=== PATIENT | male | born 1980 | race Caucasian/White ===

== ENCOUNTER 2023-08-10 12:13 | Outpatient (CLI) | payer OTHER, SELFPAY ==
--- NOTE | ~2023-08-10 | MR_ITS ---
MRI of the left shoulder Technique: Axial proton-density fat-sat images, coronal proton density fat-sat and T2 fat-sat images, and sagittal T1-weighted and T2 fat-sat images were acquired. Clinical History: Pain Findings: There is minimal AC joint degenerative change. Coracoclavicular, coracoacromial, and coraco humeral ligaments are intact. There is a probable focal low-grade 3 mm interstitial tear at the distal supraspinatus tendon inserti on. No high-grade partial full-thickness tear seen. Infraspinatus tendon is intact. Subscapularis ten don is intact, with mild tendinosis. Tendon of long head of the biceps is intact. There is probable anteroinferior labral tear, consistent with soft tissue Bankhart lesion. There is acute Hill-Sachs impaction deformity at the posterior superior aspect of the humeral head wi th impaction deformity and marrow edema. No glenoid fracture evident. Inferior glenohumeral ligament is intact. Minimal glenohumeral joint effusion present. No fluid distention of the subacromial/subdel toid bursa. No muscle atrophy or edema. Impression: Probable anteroinferior labral tear, with associated acute Hill-Sachs impaction deformity, consistent with sequelae of recent anteroinferior dislocation of the humeral head. Probable 3 mm focal low-grade interstitial tear at the distal supraspinatus tendon insertion. Reviewed, dictated and finalized at [facility]. [employer] Impression: Probable anteroinferior labral tear, with associated acute Hill-Sachs impaction deformity, consistent with sequelae of recent anteroinferior dislocation of th e humeral head. Probable 3 mm focal low-grade interstitial tear at the distal supraspinatus ten don insertion.
== END 2023-08-10 12:14 | disposition home or self-care (01) ==
LOC: ANHIMG 12:16
PROVIDERS: PCP Physician Assistant; Visit Provider Physician Assistant
DX: M25.512 Pain in left shoulder (principal); S43.006A Unspecified dislocation of unspecified shoulder joint, initial encounter; X58.XXXA Exposure to other specified factors, initial encounter
CPT/HCPCS: 73221

== ENCOUNTER 2024-06-19 21:24 | Emergency (ER) | payer OTHER, SELFPAY ==
--- NOTE | ~2024-06-19 | XR_ITS ---
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 Comparison: None. FINDINGS: MEDIASTINUM: The cardiac silhouette is not enlarged. LUNGS: No infiltrates, effusions or pneumothorax. Prominent markings in the left lower lobe medially are noted. OTHER: No free air under the diaphragm. IMPRESSION: Slightly prominent markings in the left lower lobe. Otherwise, no acute cardiopulmonary pathology. Reviewed, dictated and finalized at location [facility]. IMPRESSION: Slightly prominent markings in the left lower lobe. Otherwise, no acute cardiop ulmonary pathology.
--- NOTE | 2024-06-19 21:25 | ECG_ITS ---
Test Date: 2024-06-19 21:30:17 Measurements Intervals [place] Rate: 97 P: 44 CO: 160 QRS: 19 QRSD: 110 T: 0 QT: 323 QTc: 410 Interpretive Statements SINUS RHYTHM POSSIBLE LEFT ATRIAL ENLARGEMENT [-0.1mV P WAVE IN V1/V2] INCOMPLETE RIGHT BUNDLE BRANCH BLOCK [90+ ms QRS DURATION, TERMINAL R IN V1/V2, 40+ ms S IN I/aVL/V4/V5/V6] NONSPECIFIC ST & T-WAVE ABNORMALITY No previous ECG available for comparison Electronically Signed On 06-20-2024 08:31:13 CDT by Edmond Ibrahim M.D.
[2024-06-19 21:27] VITALS: BP 159/112; PULSE 98; RESP 18; TEMP 36.6; O2SAT 97
[2024-06-19 21:37] LABS: Basophils Absolute Auto 0.1 K/mm3 (0.0-0.1); Eosinophils Absolute Auto 0.2 K/mm3 (0-0.3); Eosinophils Percent Auto 3.1 % (0-4.4); Hemoglobin 14.8 g/dL (14.0-18.0); Immature Granulocyte Absolute 0.01 K/mm3 (0.00-0.031); Immature Granulocyte Percent A 0.2 % (0-0.5); Lymphocytes Absolute Auto 1.33 K/mm3 (0.9-3.2); Lymphocytes Percent Auto 25.8 % (18.3-44.2); Mean Corpuscular HGB Conc 34.4 g/dl (32-36); Mean Corpuscular Hemoglobin 31.7 pg (26-34); Mean Corpuscular Volume 92.1 fl (80-100); Mean Platelet Volume 9.6 fl (7.4-10.4); Monocytes Absolute Auto 0.4 K/mm3 (0.1-0.6); Monocytes Percent Auto 7.2 % (2.6-8.5); Neutrophils Absolute Auto 3.2 K/mm3 (1.3-6.7); Neutrophils Percent Auto 62.7 % (45.5-73.1); Platelet Count Result 216 k/mm3 (150-375); Red Blood Count 4.67 M/mm3 (4.6-6.20); Red Cell Distribution Width 13.2 % (11.5-14.5); White Blood Count 5.2 K/mm3 (4.5-10.0)
[2024-06-19 21:51] LABS: Alanine Aminotransferase 21 U/L (6-50); Albumin Level 4.4 g/dL (3.5-5.1); Alkaline Phosphatase 116 U/L (38-126); Anion Gap 10 mmol/L (4-12); Aspartate Amino Transferase 25 U/L (17-59); Bilirubin,Total 0.6 mg/dL (0.2-1.3); Blood Urea Nitrogen 13 mg/dL (9-20); Calcium 8.8 mg/dL (8.4-10.2); Carbon Dioxide 22 mmol/L (22-30); Chloride 106 mmol/L (98-107); Estimated CRCL calculation 89 ml/min; Estimated Glomerular Filt Rate > 60; Glucose 169 mg/dL (65-110); Lipase 64 U/L (23-300); Potassium 3.7 mmol/L (3.4-5.0); Sodium 138 mmol/L (137-145)
[2024-06-19 21:54] LABS: INR 0.9; Prothrombin Time 12.1 Seconds (11.1-14.7)
[2024-06-19 21:55] LABS: Partial Thromboplastin Time 33.7 Seconds (22.3-36.8)
[2024-06-19 22:00] LABS: Troponin I < 0.012 ng/mL (0.000-0.034)
[2024-06-20 00:45] VITALS: O2SAT 100
--- NOTE | 2024-06-20 00:45 | ED_ITS ---
HPI - Chest Pain General Chief Complaint: Chest Pain Stated Complaint: chest pain Time Seen by Provider: 06/20/24 00:16 History of Present Illness HPI narrative: 43-year-old male with no past medical history who presents to the ED for right- sided chest discomfort after having sex. Patient states that during the active intercourse he was starting to have a twinge of pain in his right-sided chest. He was associated with 1 episode of nausea and emesis. This is approximately 3 hours ago and has since subsided. He has no symptoms whatsoever during my initial evaluation. Denies any headache vision changes, nausea, vomiting, chest pain, shortness a breath. No leg swelling history of blood clots. States that he was doing exertional activities throughout the entirety of the day. No history of coronary disease to his knowledge. Was otherwise in his normal state of health. Denies any trauma to the chest or any other injuries. Related Data Allergies Allergy/AdvReac Type Severity Reaction Status Date / Time No Known Allergies Allergy Verified 06/19/24 21:24 Review of Systems Review of Systems: As reviewed above in HPI Exam Narrative: GENERAL: [Well-appearing, well-nourished, and in no acute distress.] HEAD: [Normocephalic, atraumatic.] EYES: [PERRLA and EOMI.] ENT: Nares clear, no rhinorrhea or epistaxis. Mucous membranes moist. NECK: Supple. CHEST: [Clear to auscultation. No respiratory distress.] HEART: [Regular rate and rhythm]. No murmur heard. [Normal peripheral pulses.] ABDOMEN: [Soft, nondistended], [nontender], [No rigidity or guarding] EXTREMITIES: Normal range of motion. [No edema.] SKIN: Warm, dry, no rash. NEURO: [No focal deficits]. Alert and oriented [x3.] PSYCH: [Normal mood and affect.] Course Vital Signs Vital signs: Vital Signs Temperature 36.6 C 06/19/24 21: Pulse Rate 98 06/19/24 21:27 Respiratory Rate 18 06/19/24 21: Blood Pressure 159/112 H 06/19/24 21:27 Pulse Oximetry 97 06/19/24 21:27 Oxygen Delivery Room Air 06/19/24 21: Temperature 36.6 C 06/19/24 21:27 Pulse Rate 98 06/19/24 21:27 Respiratory Rate 18 06/19/24 21:27 Blood Pressure 159/112 H 06/19/24 21:27 Pulse Oximetry 97 06/19/24 21:27 Oxygen Delivery Room Air 06/19/24 21:27 MDM - Chest Pain MDM Narrative Medical decision making narrative: 43-year-old male presenting for likely musculoskeletal chest pain. Chest pain with onset during intercourse but he has no history of coronary disease. No history of medical problems aside from elevated blood pressure does not take any medications at this time. Symptoms have been completely subsided. Symptoms were onset 3 hours prior to my initial evaluation. He has warm symmetric perfused extremities, normal cardiovascular assessment, no murmurs, clear breath sounds bilaterally. Serial troponins, CBC, CMP magnesium lipase chest x-ray and EKG were obtained. Patient did not receive any medications at complete symptomatic resolution while here in the ED. EKG was nonischemic with no ST segment elevations depressions or inversions. Initial troponin negative. Normal electrolyte profile, no leukocytosis or anemia. Chest x-ray was independently reviewed by myself and I do not appreciate any consolidations or pneumothorax. Chest x-ray interpreted by Radiology shows no acute cardiopulmonary process. Repeat troponin is negative. Patient is stable for discharge home at this time. Follow-up with PCP. Lab Data 06/19/24 21:32 06/19/24 21:32 Labs: Lab Results 06/19/24 06/20/24 Range/Units 21:32 00:40 WBC 5.2 (4.5-10.0) K/mm3 RBC 4.67 (4.6-6.20) M/mm3 Hgb 14.8 (14.0-18.0) g/dL Hct 43.0 (42.0-52.0) % MCV 92.1 (80-100) fl MCH 31.7 (26-34) pg MCHC 34.4 (32-36) g/dl RDW 13.2 (11.5-14.5) % Plt Count 216 (150-375) k/mm3 MPV 9.6 (7.4-10.4) fl Immature Gran % (Auto) 0.2 (0-0.5) % Neut % (Auto) 62.7 (45.5-73.1) % Lymph % (Auto) 25.8 (18.3-44.2) % Bollinger % (Auto) 7.2 (2.6-8.5) % Eos % (Auto) 3.1 (0-4.4) % Baso % (Auto) 1.0 (0.2-1.2) % Lymph # (Auto) 1.33 (0.9-3.2) K/mm3 Bollinger # (Auto) 0.4 (0.1-0.6) K/mm3 Eos # (Auto) 0.2 (0-0.3) K/mm3 Baso # (Auto) 0.1 (0.0-0.1) K/mm3 Abs Immat Gran (auto) 0.01 (0.00-0.031) K/mm3 Absolute Neuts (auto) 3.2 (1.3-6.7) K/mm3 Absolute Nucleated RBC 0.000 (0.0-0.012) K/mm3 Nucleated RBC % 0.0 (0.0-0.2) % PT 12.1 (11.1-14.7) Seconds INR 0.9 APTT 33.7 (22.3-36.8) Seconds Sodium 138 (137-145) mmol/L Potassium 3.7 (3.4-5.0) mmol/L Chloride 106 (98-107) mmol/L Carbon Dioxide 22 (22-30) mmol/L Anion Gap 10 (4-12) mmol/L BUN 13 (9-20) mg/dL Creatinine 0.90 (0.7-1.3) mg/dL Estim Creat Clear Calc 89 ml/min Estimated GFR > 60 (59 - ) Glucose 169 H (65-110) mg/dL Calcium 8.8 (8.4-10.2) mg/dL Total Bilirubin 0.6 (0.2-1.3) mg/dL AST 25 (17-59) U/L ALT 21 (6-50) U/L Alkaline Phosphatase 116 (38-126) U/L Troponin I < 0.012 < 0.012 (0.000-0.034) ng/mL Total Protein 7.0 (6.3-8.2) g/dL Albumin 4.4 (3.5-5.1) g/dL Lipase 64 (23-300) U/L Discharge Plan Discharge Clinical Impression: Acute chest wall pain Patient Disposition: Home, Self-Care Condition: Stable Instructions: Antibiotic Form, Chest Wall Pain (ED) Additional Instructions: Recurrent any point with any new or worsening concerns. Your cardiac enzymes were negative and there are no concerns from a cardiovascular or pulmonary perspective at this time. Likely pain is from your ribcage or muscles Follow-up/Referrals: PHYSICIAN,[employer]ER [Primary Care Provider] - Time of Disposition: 01:07
[2024-06-20 00:50] VITALS: PULSE 67; RESP 14; TEMP 36.6; O2SAT 100
[2024-06-20 01:05] LABS: Troponin I < 0.012 ng/mL (0.000-0.034)
[2024-06-20 01:33] VITALS: BP 156/89; PULSE 67; RESP 14; O2SAT 100
== END 2024-06-20 01:34 | disposition home or self-care (01) ==
PROVIDERS: Emergency Provider Student in an Organized Health Care Education/Training Program
DX: R07.89 Other chest pain (principal); I45.10 Unspecified right bundle-branch block; R94.31 Abnormal electrocardiogram [ECG] [EKG]
CPT/HCPCS: 36415; 71046; 80053; 83690; 84484; 85025; 85610; 85730; 93005; 99284

== ENCOUNTER 2025-04-11 20:21 | Emergency (ER) | payer OTHER, SELFPAY ==
--- NOTE | ~2025-04-11 | XR_ITS ---
EXAMINATION: XR chest 2V Exam Date/Time: 04/11/2025 20:51 CDT HISTORY: chest pain Comparison: 06/19/2024. RESULT: Lines, tubes, and devices: None. Lungs and pleura: Clear. Cardiomediastinal silhouette: Stable. Other: No acute osseous or upper abdominal finding. IMPRESSION: No acute cardiopulmonary process. Reviewed, dictated and finalized at location K.
--- OUTSIDE RECORDS SUMMARY | 2025-04-11 20:24 | XMS_ITS | Clinical Summary ---
Author Organization [facility] Address [address] [place] [address] Care Team Providers Care Physician Scientist Name Role Phone Nicole Peterson Primary Care Provider [phone] Allergies No known active allergies Medications amLODIPine (NORVASC) 5 MG tabletIndication s:Primary hypertension Take 1 tablet (5 mg total) by mouth daily. 90 tablet 1 5 09/12/19 26 Active olmesartan (BENICAR) 5 MG tabletIndication s:Primary hypertension Take 1 tablet (5 mg total) by mouth daily. 90 tablet 5 06/14/20 25 Active ketoconazole (NIZORAL) 2 % shampooIndicatio ns:Tinea versicolor Apply topically twice a week for 30 days. 120 mL 5 04/17/20 25 Active amLODIPine (NORVASC) 10 MG tabletIndication s:Primary hypertension Take 1 tablet (10 mg total) by mouth daily. 90 tablet 1 5 03/16/20 25 Discontin ued(Reord er) Active Problems Problem Noted Date Diagnosed Date Penile pain 03/16/2025 Overview (03/16/2025): 03/16/2025: Reports has been having intermittent discomfort in his penis for few days. He denies swelling however reports that it feels like it swollen. He reports he has had an erection and sexual intercourse since onset of this and reports that it was painful. He denies burning or pain with urination. He denies penile discharge. He denies any episode similar to this in the past. He denies trauma to penis. Assessment & Plan (03/16/2025 10:44 AM CDT): Unknown etiology of penile pain at this time as physical exam unremarkable and history unremarkable. In office urinalysis within normal limits. Will send off for urine bacteria culture in addition to testing urine for gonorrhea, chlamydia and trichomonas which patient agreed to. Discussed with patient that if penile pain is concerning, he can use vptl-[id number]-[id number] anti-inflammatory NSAID such as ibuprofen. Otherwise, we will continue to monitor. If worsens, would like him to return. Tinea versicolor 03/16/2025 Assessment & Plan (03/16/2025 10:41 AM CDT): Patient's discoloration consistent with tinea versicolor. Will treat with ketoconazole 2% shampoo twice weekly. Patient counseled to leave shampoo on area of discoloration for 5 to 10 minutes prior to rinsing off. Will continue to monitor. Need for prophylactic vaccination against hepati tis B virus 11/24/2024 Overview (12/29/2024): 11/24/2024: He is unsure if he has had hepatitis B vaccine before. He would like to receive hepatitis B vaccine. 12/29/2024: Due for second dose of hepatitis B vaccine. Assessment & Plan (12/29/2024 11:10 AM CDT): Received second dose of hepatitis B vaccine. He was given [facility] to [facility]. Assessment & Plan (11/24/2024 12:58 PM CDT): First dose of hepatitis B vaccine given. Second dose due 12/25/2024. Primary hypertension 08/11/2024 Overview (04/06/2025): Diagnosis: 08/11/2024 Regimen: Amlodipine 5 mg daily, olmesartan 5 mg daily GFR: >90, 10/28/2024 Urine microalbumin to creatinine ratio: 4.7, 10/28/2024 Blood pressure monitoring device at home: YES 11/24/2024: He reports he has been taking approximately every other day at noon as he often forgets. He reports he has not been checking his blood pressure measurements at home. Upcoming appointment this at 3pm with Marzipan Maker at [facility]. 12/29/2024: He reports he has been taking his amlodipine 10 mg regularly. He reports he is also drinking beet juice regularly. 03/16/2025: He reports he is having difficulty taking his amlodipine daily. He reports he is also noticed some occasional leg swelling. He is asking if medication can be adjusted. 04/06/2025: Assessment & Plan (03/16/2025 10:41 AM CDT): Decrease amlodipine to 5 mg daily and add olmesartan 5 mg daily. Assessment & Plan (12/29/2024 11:09 AM CDT): Blood pressure appropriate in office today. Continue amlodipine 10 mg daily. Assessment & Plan (11/24/2024 1:00 PM CDT): Blood pressure mildly elevated in office today. Instructed to take amlodipine 10 mg daily. He can take in morning, afternoon or evening as long as he takes approximately every 24 hours. Will plan to request records from vision exam after vision exam if they are not sent to office. Assessment & Plan (11/03/2024 11:47 AM [employer]): Blood pressure continues to remain mildly elevated in office today. I would like to continue amlodipine 10 mg at this time. I would like patient to start taking blood pressure measurements at home. Discussed with him that I anticipate his blood pressure decreasing upon losing weight and making lifestyle changes however we may need to adjust medication therapy until those changes show affect at next visit. Renal function is within normal limits. Assessment & Plan (10/06/2024 11:17 AM [employer]): Referral placed to optometry. Blood pressure is elevated in office today. Increase amlodipine to 10 mg daily. Patient counseled at length on dietary changes. Counseled to purchase arm blood pressure cuff and start monitoring blood pressure at home and take measurements and bring in measurements and cuff at next appointment. Assessment & Plan (08/11/2024 12:37 PM [employer]): Blood pressure has been elevated at 2 separate visits. Discussed with medication the importance of initiating medication therapy and he is agreeable. Will start with amlodipine 5 mg once daily. Patient can take this medication in the morning or at nighttime however is instructed to take about the same time every day. He is counseled on potential side effects such as leg swelling among others. If he has any adverse responses to the medication, he is to discontinue and notify the office. 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 Discussed that patient will need an optometry evaluation with dilated eye exam annually. Mixed hyperlipidemia 07/30/2024 Overview (11/24/2024): 08/11/2024: Component Ref Range & Units 07/28/24 1210 CHOLESTEROL <200 MG/DL 251 High TRIGLYCERIDES <150 MG/DL 109 HDL >40 MG/DL 55 LDL-C <100 MG/DL 174 High VLDL CALCULATION 5 - 28 MG/DL 22 CHOL/HDL RATIO 0.0 - 4.0 4.6 High LDL/HDL 0.41 - 2.13 3.2 High NON HDL CHOLESTEROL <140 MG/DL 196 High 11/24/2024: Reports has not yet completed coronary artery calcium score. Assessment & Plan (11/24/2024 12:57 PM CDT): Counseled to complete coronary artery calcium score at his leisure as is recommended in the setting of his age and other comorbidities. Assessment & Plan (11/03/2024 11:48 AM [employer]): Discussed with patient that in the setting of his mixed hyperlipidemia and high blood pressure and family history, I would recommend he have CT coronary artery calcium score completed. He is counseled that this is an pfl-gs-botbsz cost of $100. He is agreeable. Order has been placed. Assessment & Plan (10/06/2024 11:19 AM [employer]): Patient counseled at length on dietary changes such as increasing intake of dietary fiber through all fruits, vegetables and whole grains addition to supplementing with Metamucil/psyllium husk. He had also decrease intake of saturated fats. His ASCVD risk score is below threshold of 7.5% so no statin medication is indicated at this time. This was discussed at length with patient. The 10-year ASCVD risk score (Clarissa MCCRAY, et al., 2019) is: 5.8% Values used to calculate the score: Age: 44 years Sex: Male Is Non- : No Diabetic: No Tobacco smoker: Yes Systolic Blood Pressure: 128 mmHg Is BP treated: No HDL Cholesterol: 55 MG/DL Total Cholesterol: 251 MG/DL Assessment & Plan (08/11/2024 12:23 PM [employer]): Patient is counseled that at this time, no statin medication is recommended. He is counseled on appropriate dietary modifications that can help improve cholesterol such as increasing intake of dietary fiber and decreasing intake of saturated fats. He is recommended to increase dietary fiber slowly as to avoid potential GI symptoms. Will continue to monitor. The 10-year ASCVD risk score (Clarissa MCCRAY, et al., 2019) is: 8.4% Values used to calculate the score: Age: 44 years Sex: Male Is Non- : Yes Diabetic: No Tobacco smoker: Yes Systolic Blood Pressure: 152 mmHg Is BP treated: No HDL Cholesterol: 55 MG/DL Total Cholesterol: 251 MG/DL Assessment & Plan (07/30/2024 8:22 AM [employer]): Component Ref Range & Units 07/28/24 1210 CHOLESTEROL <200 MG/DL 251 High TRIGLYCERIDES <150 MG/DL 109 HDL >40 MG/DL 55 LDL-C <100 MG/DL 174 High VLDL CALCULATION 5 - 28 MG/DL 22 CHOL/HDL RATIO 0.0 - 4.0 4.6 High LDL/HDL 0.41 - 2.13 3.2 High NON HDL CHOLESTEROL <140 MG/DL 196 High Results returned after patient visit. Will need to discuss treatment at upcoming visit. History of chlamydia infection 07/28/2024 Overview (07/28/2024): Patient reports was treated Counseling for HPV (human papillomavirus) chrisin valery 07/28/2024 Assessment & Plan (07/28/2024 3:19 PM [employer]): Patient counseled regarding HPV vaccine especially as his partner has HPV. Patient will require 3 doses. Family history of stroke 07/28/2024 Family history of hypertension 07/28/2024 Resolved Problems Problem Noted Date Diagnosed Date Resolved Date Vitamin D deficiency 07/30/2024 025 Overview (10/06/2024): 08/11/2024: Component Ref Range & Units 07/28/24 1210 VITAMIN D 25 HYDROXY TOTAL S/P/B 30 - 100 NG/ML 16.8 Low He was started on vitamin D3 50,000 units once weekly. He reports he started taking this past . 10/06/2024: He reports he has been taking vitamin D supplement once weekly. He reports he has 3 doses left. Assessment & Plan (10/06/2024 11:18 AM [employer]): He is to finish once weekly vitamin D supplementation. Will recheck vitamin D levels prior to next appointment. Assessment & Plan (08/11/2024 12:25 PM [employer]): He is to continue once weekly vitamin D3. Will monitor as appropriate. Assessment & Plan (07/30/2024 8:21 AM [employer]): Component Ref Range & Units 07/28/24 1210 VITAMIN D 25 HYDROXY TOTAL S/P/B 30 - 100 NG/ML 16.8 Low Sending high-dose vitamin D 3 to take once weekly with food for 12 weeks. Elevated alkaline phosphatase level 07/30/2024 11/02/2024 Overview (08/11/2024): ALKALINE PHOSPHATASE S/P/B 45 - 115 U/L 120 High Assessment & Plan (08/11/2024 12:27 PM [employer]): Will repeat in 3 months when we reevaluate kidney function Decreased glomerular filtration rate (GFR) 07/30/2024 11/03/2024 Overview (11/03/2024): Labs 07/28/2024 GFR ESTIMATE >90 ML/MIN/1.73 M2 70 Low CREATININE S/P/B 0.70 - 1.30 MG/DL 1.30 Labs 10/28/2024: CREATININE S/P/B 0.70 - 1.30 MG/DL 1.03 GFR ESTIMATE >90 ML/MIN/1.73 M2 >90 Assessment & Plan (10/06/2024 11:19 AM [employer]): Rechecking renal function prior to next appointment Assessment & Plan (08/11/2024 12:29 PM [employer]): Serum creatinine Adalat upper limit of normal. We are starting antihypertensive therapy and will repeat serum creatinine and order urine microalbumin to creatinine ratio in 3 months. Penile lesion 07/28/2024 10/06/2024 Overview (08/11/2024): From last visit: He reports he had acute onset of a bump on his penis 07/18/2024 that increased in size. He reports going to urgent care on 07/20/2024 is given antibiotic prescription. PDMP shows prescription of Bactrim for 7 days. He reports taking full prescription. He reports the lesion initially looked like a blister however denies any drainage. He denies any skin desquamation. He states the lesion was initially painful. He reports he is monogamous with his since they got in March 2024. He reports he has previously been diagnosed and treated for chlamydia however this was many years ago. Patient reports his penile lesion has decreased and has almost completely resolved. He is counseled that HIV, hepatitis C, syphilis, and other STI testing returned negative or within normal limits. Assessment & Plan (08/11/2024 12:25 PM [employer]): Patient is to continue to monitor and we can reevaluate if necessary. Assessment & Plan (07/30/2024 8:26 AM [employer]): Lesion is not consistent with a specific diagnosis at this time. He has no additional symptoms at this time. Tested for gonorrhea, chlamydia, trichomonas, syphilis, HIV and hepatitis C. Gonorrhea returned negative Chlamydia returned negative Trichomonas returned negative Syphilis antibody returned nonreactive HIV antibody returned nonreactive Hepatitis C antibody returned nonreactive Patient instructed to monitor lesion for change. If fails to improve and or worsens, patient is to notify so we will reevaluate. Elevated blood pressure read ing in office without diagnosis of hypertension 07/28/20242023 Overview (07/28/2024): He reports blood pressure has been elevated before Assessment & Plan (07/28/2024 3:21 PM [employer]): Patient counseled that blood pressure is elevated. Will continue to monitor and recheck at upcoming appointment. Patient instructed to measure blood pressure at home so we can see if blood pressure remains elevated at home. 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 [place] [address] Nicole Peterson, Urinary Problem (Pt states he has discomfort with urination for the past few days. /) 03/16/2025 Hospital Encounter [facility] [address] [place] [address] Nicole Peterson, Discharge Disposition: Home or Self Care (Routine Discharge) 03/16/2025 - 03/16/2025 11:59 PM CDT Hospital Encounter [facility] [address] [address] Nicole Peterson, Discharge Disposition: Home or Self Care (Routine Discharge) 03/16/2025 Results [facility] [place] [facility] [place] [address] [place] [address] Nicole Peterson, URINALYSIS AUTO DIP, CHLAM/GC/TRICHOMONA S PROFILE, URINE BACTERIA CULTURE 03/16/2025 Travel 03/11/2025 Telephone [facility] - [address] [place] [address] Nicole Peterson DO Called To Cancel Office Appt. from Last 3 Months Immunizations Immunization Administration Dates Next Due Hepatitis B (Recombivax Hb 10 Mcg) 12/29/2024, Tdap (Generic) 03/28/2015 Family History Medical History Relation Comments Diabetes type I Brother Early Brother 31 Heart Disease Brother No Known Problems Daughter 1 No Known Problems Daughter 2 Stroke Father Stroke Maternal Grandfather Hypertension Maternal Grandmother Stroke Maternal Grandmother Breast Cancer Mother Diabetes Mother insulin No Known Problems Paternal Grandfather No Known Problems Paternal Grandmother Hypertension Sister No Known Problems Son Relation Status Comments Brother Daughter 1 Alive Daughter 2 Alive Father Alive Maternal Grandfather Maternal Grandmother Alive Mother Alive Paternal Grandfather Paternal Grandmother Sister Alive Son Alive Social History Tobacco Use Types Packs/Day Years Used Date Smoking Tobacco: Former Cigars Q uit: 2023 Passive Smoke Exposure: Never Smokeless Tobacco: Never Tobacco Cessation:Counseling Given: No Comments:Off and on for years 1/4 of pack of cigarettes for 1-2 year Alcohol Use Standard Drinks/Week Comments Not Currently 0 (1 standard drink = 0.6 oz pur e alcohol) Holidays and get togethers PHQ-2 Answer Date Recorded Patient Health Questionnaire-2 Score 0 10/06/2024 Sex and Gender Information Value Date Recorded Sex Assigned at Male 10/06/2024 10:22 AM [employer] Legal Sex Male 8:04 PM CDT Gender Identity Male 10/06/2024 10:22 AM [employer] Sexual Orientation Not on file Last Filed Vital Signs Vital Sign Reading Time Taken Comments Blood Pressure 132/84 03/16/2025 7:51 AM CDT Pulse 77 03/16/2025 7:51 AM CDT Temperature 36.4 C (97.5 F) 03/16/2025 7:51 AM CDT Respiratory Rate 16 03/16/2025 7:51 AM CDT Oxygen Saturation 98% 03/16/2025 7:51 AM CDT Inhaled Oxygen Concentration - - Weight 87.1 kg (192 lb) 03/16/2025 7:51 AM CDT Height 170.2 cm (5' 7) 03/16/2025 7:51 AM CDT Body Mass Index 30.07 03/16/2025 7:51 AM CDT Plan of Treatment Health Maintenance Due Date Last Done Comments Annual Physical 1985 Hepatitis B Vaccines (1 of 3 - 19+ 3-dose series) 2001 12/29/2024, 11/24/2024 Pneumococcal Vaccine: Pediatrics (0 to 5 Years) and At-Risk Patients (6 to 49 Years) (1 of 2 - PCV) 2001 HPV Vaccines (1 - 3-dose SCD M series) 2009 DTaP, Tdap and Td Vaccines ( 2 - Td or Tdap) 03/28/2025 03/28/2015 COVID-19 Vaccine ( - 2023-2 5 season) 2025 Postponed from 05/10 (Patient Refused) Hepatitis C Completed 09/23/2024, 07/28/2024 PHQ-2 (Physician Cameron) Completed 10/06/2024 Meningococcal B Vaccine Aged Out No l onger eligible based on patient's age to complete this topic Meningococcal Vaccine Aged Out No maryjane ga eligible based on patient's age to complete this topic RSV Immunizations Under 20 Months Aged Out No longer eligible b ased on patient's age to complete this topic Procedures Procedure Name Priority Date/Time Associated Diagnosis Comments CHLAM/GC/TRICHOMONAS PROFILE Routine 03/16/2025 10:43 AM CDT Penile pain URINE BACTERIA CULTURE Routine 03/16/2025 10:43 AM CDT Penile pain URINALYSIS AUTO DIP Routine 03/16/2025 Penile pain HEPATITIS C ANTIBODY Routine 07/28/2024 12:10 PM [employer] Encounter for hepatitis C screening test for low risk patient from Last 3 Months or Most Recently Relevant to Health Maintenance Results * CHLAM/GC/TRICHOMONAS PROFILE (03/16/2025 10:43 AM CDT) SPEC DESCRIPTION URINE 03/16/20 10:[address] [facility] CHLAMYDIA RNA TMA NEGATIVE NEGATIVE 025 2:[address] [facility] Comment:PERFORMED BY NUCLEIC ACID AMPLIFICATION N.GONORRHOEAE RNA TMA NEGATIVE NEGATIVE 03/17/2025 2:[address] [facility] Comment:PERFORMED BY NUCLEIC ACID AMPLIFICATION TRICHOMONAS NEGATIVE NEGATIVE 03/17/2025 2:[address] [facility] Comment:PERFORMED BY NUCLEIC ACID AMPLIFICATION URINE SPECIMEN / Unknown 03/16/2025 10:43 AM CDT Nicole Peterson DO MICROBIOLOGY - GENERAL ORDERA BLES Final Result Performing Organization Address City/[facility]/ZIP Co de Phone Number [facility] [address] [place] [address], [place] [phone] * URINE BACTERIA CULTURE (03/16/2025 10:43 AM CDT) SPEC DESCRIPTION URINE VOIDED 03/16/2025 10:44 AM CDT [facility] SPECIAL REQUESTS NO SPECIAL REQUEST 03/16/2025 10:44 AM CDT [facility] CULTURE RESULT NO GROWTH (< OR = 1,000 CFU/ML) 03/18/2025 11:41 AM CDT [facility] URINE SPECIMEN FROM URETHRA / Unknown 03/16/2025 10:43 AM CDT 03/17/2025 7:09 AM CDT us Nicole Peterson DO MICROBIOLOGY - GENERAL ORDERA BLES Final Result [facility] [address] [place] [address], [place] [phone] [id number] * URINALYSIS AUTO DIP (03/16/2025) COLOR (U) YELLOW YELLOW [address], [place] TRANSPARENCY CLEAR CLEAR MG[address], [place] GLUCOSE (U) NEGATIVE NEGATIVE MG/DL MG-[address], [place] BILIRUBIN (U) NEGATIVE NEGATIVE MG-[address], [place] KETONES MG/DL (U) NEGATIVE NEGATIVE MG/DL MG-[address], [place] SPECIFIC GRAVITY (U) 1.020 1.001 - 1.035 MG-[address], [place] BLOOD (U) NEGATIVE NEGATIVE MG-[address], [place] U PH 6.5 5.0 - 9.0 MG-[address], [place] PROTEIN (U) NEGATIVE NEGATIVE mg/dL MG-[address], [place] UROBILINOGEN 1.0 0.2 - 1.0 EU/dL = mg/dL MG-[address], [place] NITRITES NEGATIVE NEGATIVE MG/DL MG-[address], [place] LEUKOCYTES (U) NEGATIVE NEGATIVE MG-[address], [place] URINE SPECIMEN FROM URETHRA / Unknown 03/16/2025 Nicole Petersno DO URINE ORDERABLES Final Result [address], [facility] [address] [place] [address], [place] [phone] * HEPATITIS C ANTIBODY (07/28/2024 12:10 PM [employer]) HEPATITIS C AB NON-REACTI VE NON-REACT KRISTY 07/28/2024 9:54 PM [employer] [facility] Comment: ANTIBODIES TO HCV NOT DETECTED. DOES NOT EXCLUDE THE POSSIBILITY OF EXPOSURE TO HCV. 07/28/2024 12:1 0 PM [employer] Nicole Peterson DO LABORATORY Final Result [facility] [address] [place] [address], [place] [phone] from Last 3 Months or Most Recently Relevant to Health Maintenance Insurance [employer] Care Teams Physician Scientist Relationship Specialty Start Date End Date Nicole Peterson DO [address] [facility] [address] [place] [address] PCP - General FAMILY PRACTICE 07/23/24 05/04/25
--- OUTSIDE RECORDS SUMMARY | 2025-04-11 20:24 | XMS_ITS | Clinical Summary ---
Author Organization [facility] Address [address] [place] [address] Care Team Providers Care Utilities Estimator And Drafter Name Role Phone Cait Mart NP Primary Care Provider Allergies No known active allergies Medications ondansetron ODT (ZOFRAN-ODT) 4 mg disintegrating tablet Take 1 tablet (4 mg total) by mouth every 8 (eight) hours as needed for nausea or vomiting 20 tablet 1 Active azithromycin (Zithromax Z-Loc) 250 mg tablet Take 1 tablet (250 mg total) by mouth daily Take first 2 tablets together, then 1 every day until finished. 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 Gender Identity Not on file Sexual Orientation Not on file Obstetrics History Last Filed Vital Signs Vital Sign Reading Time Taken Comments Blood Pressure 134/97 07/21/2023 4:30 PM LIME KILN WORKER Pulse 70 07/21/2023 4:30 PM LIME KILN WORKER Temperature 36.9 C (98.4 F) 07/21/2023 1:37 PM LIME KILN WORKER Respiratory Rate 13 07/21/2023 4:30 PM LIME KILN WORKER Oxygen Saturation 93% 07/21/2023 4:30 PM LIME KILN WORKER Inhaled Oxygen Concentration - - Weight 86.2 kg (190 lb) 09/12/2023 2:45 PM LIME KILN WORKER Height 170.2 cm (5' 7) 09/12/2023 2:45 PM LIME KILN WORKER Body Mass Index 29.76 09/12/2023 2:45 PM LIME KILN WORKER Plan of Treatment Health Maintenance Due Date Last Done Comments Depression Screening 1982 Prostate Cancer Screening-PSA 1982 Varicella Vaccines (1 of 2 - 13+ 2-dose series) 1995 Hepatitis B Screening 2000 Regular Well Visit/Exam 18-64 2000 HPV Vaccines (1 - 3-dose SCD M series) 2009 DTaP/Tdap/Td Vaccine (3 - Td or Tdap) 03/28/2025 03/28/2015, 03/28/2015 Influenza Vaccine (#1) 2025 Hepatitis C Screening Completed 09/23/2024 Pneumococcal vaccine <65 Aged Out No longer eligible based on patient's age to complete this topic Procedures Procedure Name Priority Date/Time Associated Diagnosis Comments HEPATITIS C ANTIBODY Routine 09/23/2024 1:08 PM LIME KILN WORKER Encounter for screening for infections with predominantly sexual mode of transmission from Last 3 Months or Most Recently Relevant to Health Maintenance Results * Hepatitis C antibody Blood (09/23/2024 1:08 PM LIME KILN WORKER) Hep C Ab Nonreactive Nonreactive Comment:Antibodies to HCV no t detected. Does NOT exclude the possibility of recent exposure to HCV. Current interpretive data was last revised on 22 Blood 09/23/2024 1:08 PM LIME KILN WORKER 09/23/2024 2:17 PM LIME KILN WORKER Tristan Vizcaino MD LAB MICROBIOLOGY - GENERAL ORDERABLES Final Result [facility] Department [place] [address] from Last 3 Months or Most Recently Relevant to Health Maintenance Insurance [facility] CIGNA [id number] [employer] Care Teams Utilities Estimator And Drafter Relationship Specialty Start Date End Date Cait Mart NP PCP - General Family Medicine 07/23/23
--- OUTSIDE RECORDS SUMMARY | 2025-04-11 20:24 | XMS_ITS | Clinical Summary ---
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 Gender Identity Not on file Sexual Orientation Not on file Plan of Treatment Health Maintenance Due Date Last Done Comments Hepatitis C Virus (HCV) Screening 1982 Human Papillomavirus (HPV) Immunization (1 - Male 3-dose series) 1997 Hepatitis B Immunization (1 of 3 - 19+ 3-dose series) 2001 SARS-COV-2 Immunization (2023- season) 2024 Influenza Immunization (#1) 2025 Respiratory Syncytial Virus (RSV) Immunization (Adult) (1 - 1-dose 75+ series) 2057 DTaP/Tdap/Td Immunization Discontinued 03/28/2015 TdaP Immunization Completed 03/28/2015 Meningococcal Immunization (ACWY) Aged Out No longer eligible based on patient's age to complete this topic Pneumococcal Immunization Combined Aged Out No longer eligible based on patient's age to complete this topic Rotavirus Immunization Aged Out No lo nger eligible based on patient's age to complete this topic
--- OUTSIDE RECORDS SUMMARY | 2025-04-11 20:24 | XMS_ITS | Referral Summary ---
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 Gender Identity Not on file Sexual Orientation Not on file Last Filed Vital Signs Vital Sign Reading Time Taken Comments Blood Pressure 134/97 07/21/2023 4:30 PM BIOLOGY TEACHER Pulse 70 07/21/2023 4:30 PM BIOLOGY TEACHER Temperature 36.9 C (98.4 F) 07/21/2023 1:37 PM BIOLOGY TEACHER Respiratory Rate 13 07/21/2023 4:30 PM BIOLOGY TEACHER Oxygen Saturation 93% 07/21/2023 4:30 PM BIOLOGY TEACHER Inhaled Oxygen Concentration - - Weight 86.2 kg (190 lb) 09/12/2023 2:45 PM BIOLOGY TEACHER Height 170.2 cm (5' 7) 09/12/2023 2:45 PM BIOLOGY TEACHER Body Mass Index 29.76 09/12/2023 2:45 PM BIOLOGY TEACHER Plan of Treatment Not on file Procedures Procedure Name Priority Date/Time Associated Diagnosis Comments HEPATITIS C ANTIBODY Routine 09/23/2024 1:08 PM BIOLOGY TEACHER Encounter for screening for infections with predominantly sexual mode of transmission from Last 3 Months or Most Recently Relevant to Health Maintenance Results * Hepatitis C antibody Blood (09/23/2024 1:08 PM BIOLOGY TEACHER) Hep C Ab Nonreactive Nonreactive Comment:Antibodies to HCV no t detected. Does NOT exclude the possibility of recent exposure to HCV. Current interpretive data was last revised on 22 Blood 09/23/2024 1:08 PM BIOLOGY TEACHER 09/23/2024 2:17 PM BIOLOGY TEACHER us Tristan Vizcaino MD LAB MICROBIOLOGY - GENERAL ORDERABLES Final Result [facility] Department [place] [address] from Last 3 Months or Most Recently Relevant to Health Maintenance Insurance [facility] [id number] [place] [address] [employer] Care Teams Rag Willow Operator Relationship Specialty Start Date End Date Cait Mart NP PCP - General Family Medicine 07/23/23
--- NOTE | 2025-04-11 20:25 | ECG_ITS ---
Test Date: 2025-04-11 20:32:45 Measurements Intervals [place] Rate: 73 P: 52 KS: 173 QRS: 41 QRSD: 107 T: -83 QT: 331 QTc: 366 Interpretive Statements SINUS RHYTHM INCOMPLETE RIGHT BUNDLE BRANCH BLOCK ST ELEVATION IN DIFFUSE LEADS- PROBABLY EARLY REPOLARIZATION T WAVE ABNORMALTY IN INF/LAT LEADS- CONSIDER ISCHEMIA ABNORMAL ECG Compared to ECG 06/19/2024 21:30:17 Possible ischemia now present Electronically Signed On 04-12-2025 06:23:43 CDT by Carlos Leon D.O.
--- OUTSIDE RECORDS SUMMARY | 2025-04-11 20:25 | XMS_ITS | Patient Health Record ---
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 Meter Repair Shop Supervisor Name Role Phone Cait Mart Primary Care Provider Allergies No Known Allergies Reason For Referral No Information Medications Medication SIG (Take, Route, Frequency, Duration) Notes Start Date End Date Status Albuterol Sulfate HFA 108 (90 Base) MCG/ACT 1-2 puffs as needed Inhalation every 4 hrs As needed dyspnea Active Acetaminophen 500 MG 1 capsule as needed Orally every 6 hrs Active predniSONE 50 MG 1 tablet Orally Once a day; Duration: 30 day(s) Not-Taking Ergocalciferol 1.25 MG (26662 UT) 1 capsule Orally once a week for 8 weeks 08/05/2023 Active Azithromycin 250 MG 2 tablet on the s t day, then 1 tablet daily for 4 days Orally Once a day; Duration: 5 day(s) Not-Taking Atorvastatin Calcium 40 MG TAKE 1 TABLET BY MOUTH EVERY DAY; Duration: 30 days Active Social History Tobacco Use: Social History Observation Description Date Details (start date - stop date) Never Smoker NA - NA Sex Assigned At : Social History Observation Description Sex Assigned At Male Dont use, Tobacco Use/Smoking Question Answer Notes Are you a nonsmoker Problems Problem Type SNOMED Code ICD Code Onset Dates Problem Status W/U Status Risk Notes Problem Vitamin D deficiency (02325656) Vitamin D deficiency, unspecified (E55.9) Active confirmed Problem Hypertriglyceridemia (453301352) Hypertriglyceridemia (E78.1) Active confirmed Plan Of Treatment No Information Insurance Providers Payer Name Payer Address Payer Phone Subscriber Number Group Number Insured Name Patient Relationship to Insured Coverage Start Date Coverage End Date [employer] [address] [place] [address] [id number] Jayden Laurent Self - patient is the insured 2 [employer] [address] [place] [address] [id number] Jayden Laurent Self - patient is the insured 2 Medical (General) History Medical History History ICD Code Left Arm Pain Surgical History Surgery Date(Month/Year) Hospitalization History Reason Date(Month/Year)
[2025-04-11 20:26] VITALS: BP 147/83; PULSE 79; RESP 19; TEMP 36.2; O2SAT 97
[2025-04-11 20:43] VITALS: BP 137/94; PULSE 79; RESP 17; O2SAT 99
[2025-04-11 20:46] VITALS: BP 136/94; PULSE 75; RESP 15; O2SAT 98
--- NOTE | 2025-04-11 20:54 | ED_ITS ---
HPI - General Adult General Chief complaint: Unspecified Stated complaint: Rapid heart rate, N/V-chest pain Time Seen by Provider: 04/11/25 20:36 Source: patient and family Mode of arrival: ambulatory Limitations: no limitations History of Present Illness HPI narrative: Patient presents report of a rapid heart rate as well as nausea and vomiting. His reported that he woke up gasping short of breath although he does not recall this and does not feel short of breath now. Patient states this has happened before. It often happens when he eats and then goes promptly to bed which is what occurred this evening. Right after they finished their meal he went to bed at approximately 4:20 p.m. and woke up 30-45 minutes later with the symptoms. He denies any jm chest pain although he describes a chest fullness/discomfort. He used his inhaler but also vomited. He denies any underlying respiratory condition diagnosis only that he was given inhaler when he had COVID and he will occasionally use it when he gets short of breath ever since. Denies any underlying cardiac history and has never seen a gripper machine operator. Denies any edema. Describes the location of his pain running substernally but up and down. Denies any orthopnea. Cardiac risk factors HTN: Yes, on medications HLD: He reports this has been up and down and had been up on most recent labs but not currently on medications DM: No Obese: Technically yes by reported values today (30.6 AMI) Smoker: Occasionally smokes a block and mild every few months including most recently yesterday Personal history [place]/TIA/CVA: No Fam Hx [place] in first degree relative <65yo: No (brother of cardiac arrest attributed to lifelong DM) Related Data Allergies Allergy/AdvReac Type Severity Reaction Status Date / Time No Known Allergies Allergy Verified 04/11/25 20:22 [facility] Past Medical History Medical History High cholesterol Hypertension Family History Family History (Updated 04/11/25 @ 21:12 by Isa Alicia MD) Sibling Diabetes mellitus Cardiac arrest Social History Social History Smoking status: Light tobacco smoker Additional smoking assessment comments: occasional Black & Mild Living arrangements: with family Exam 2 Narrative: GENERAL: Well-appearing, well-nourished, and in no acute distress. HEAD: Normocephalic, atraumatic. EYES: Non injected, non icteric ENT: Nares clear, no rhinorrhea or epistaxis. Gross auditory acuity intact. NECK: Supple. No meningismus. CHEST: Speaking in full sentences. No respiratory distress. Lungs clear to auscultation bilaterally without appreciable wheezes or crackles. HEART: Regular rate and rhythm. . ABDOMEN: Soft, nondistended. No rigidity or guarding. Not peritoneal EXTREMITIES: Normal range of motion. No bilateral lower extremity edema. SKIN: Warm, dry, no rash. NEURO: No focal deficits. Alert and oriented. Answering questions. Following commands. Normal speech without aphasia or dysarthria. PSYCH: Normal mood and affect. Course Vital Signs Vital signs: Vital Signs Temperature 97.2 F L 04/11/25 20:26 Pulse Rate 79 04/11/25 20:26 Respiratory Rate 19 04/11/25 20:26 Blood Pressure 147/83 H 04/11/25 20:26 Pulse Oximetry 97 04/11/25 20:26 Oxygen Delivery Room Air 04/11/25 20:26 Temperature 97.2 F L 04/11/25 20:26 Pulse Rate 62 04/12/25 00:01 Respiratory Rate 12 04/12/25 00:01 Blood Pressure 127/78 04/12/25 00:01 Pulse Oximetry 96 04/12/25 00:01 Oxygen Delivery Room Air 04/11/25 20:26 Medical Decision Making [facility] Narrative Medical decision making narrative: Patient presents with acute onset nausea and vomiting with report of rapid heart rate. His reports he woke up gasping and short of breath although he states he did not recall this and does not feel short of breath at this time. Denies jm chest pain but describes it as a discomfort or fullness. States this often happens when he lays down/goes to bed immediately after eating which is what occurred this evening. In the emergency department he is afebrile with vital signs notable for mild hypertension. Patient's symptoms sound more GI than cardiac but will proceed with cardiac work up while also giving famotidine and GI cocktail. Given the morphology of the ST segment throughout the EKG, I did discuss with software support engineer Dr Ligia Louise who concurs not a STEMI but advises proceeding with CP work up/troponin which at this time is still pending result. HEART SCORE History 2 highly suspicious 1 moderately suspicious 0 slightly suspicious History score [address] depression/elevation not due to LBBB, LVH, or digoxin [address] depression but LBBB, LVH, nonspecific repolarization changes 0 normal ECG score 1 Age 2 >/= 65 1 45-64 0 <45 Age score 0 Risk factors (HTN, hypercholesterolemia, DM, obesity with BMI >30, current smoker or cessation </=3mo), positive fam hx with parent or sibling with CVD before age 65, atherosclerotic disease (prior [place], PCI/CABG, CVA/TIA, or peripheral arterial disease) 2 >/= 3 risk factors or history of atherosclerotic dz 1 - 1-2 risk factors 0 no known risk factors Risk factor score 2 Initial Troponin 2 >3 times normal limit 1 1-3 times normal limit 0 less than or equal to normal limit Troponin score 0 Total HEART Score 3 Dimer normal. BNP normal. Repeat EKG continues to have strange morphology but patient is otherwise asymptomatic and has been ever since the GI cocktail. 3 hour troponin normal. Patient would like to be discharged in it does seem that he is otherwise stable and low risk. Did recommend in discharge instructions that he follow-up for outpatient workup given his heart score is 3, i.e. not negligible. Also advised that he not lay down and sleep immediately after eating and he was prescribed a short course of omeprazole to trial. Differential Diagnosis Differential Diagnosis: GERD, gastritis, pancreatitis, ACS, acute heart failure, PE, pneumonia Vital Signs Vital Signs: Vital Signs Temperature 97.2 F L 04/11/25 20:26 Pulse Rate 79 04/11/25 20:26 Respiratory Rate 19 04/11/25 20:26 Blood Pressure 147/83 H 04/11/25 20:26 Pulse Oximetry 97 04/11/25 20:26 Oxygen Delivery Room Air 04/11/25 20:26 Temperature 97.2 F L 04/11/25 20:26 Pulse Rate 62 04/12/25 00:01 Respiratory Rate 12 04/12/25 00:01 Blood Pressure 127/78 04/12/25 00:01 Pulse Oximetry 96 04/12/25 00:01 Oxygen Delivery Room Air 04/11/25 20:26 Lab Data Lab results reviewed: Yes I reviewed the patient's lab results. Lab results narrative: CBC unremarkable 04/11/25 20:47 04/11/25 20:47 Labs: Lab Results 04/11/25 04/11/25 Range/Units 20:47 23:28 WBC 6.9 (4.5-10.0) K/mm3 RBC 4.70 (4.6-6.20) M/mm3 Hgb 14.1 (14.0-18.0) g/dL Hct 43.0 (42.0-52.0) % MCV 91.5 (80-100) fl MCH 30.0 (26-34) pg MCHC 32.8 (32-36) g/dl RDW 13.0 (11.5-14.5) % Plt Count 210 (150-375) k/mm3 MPV 9.3 (7.4-10.4) fl Immature Gran % (Auto) 0.4 (0-0.5) % Neut % (Auto) 69.0 (45.5-73.1) % Lymph % (Auto) 18.9 (18.3-44.2) % [place] % (Auto) 7.6 (2.6-8.5) % Eos % (Auto) 3.1 (0-4.4) % Baso % (Auto) 1.0 (0.2-1.2) % Lymph # (Auto) 1.30 (0.9-3.2) K/mm3 [place] # (Auto) 0.5 (0.1-0.6) K/mm3 Eos # (Auto) 0.2 (0-0.3) K/mm3 Baso # (Auto) 0.1 (0.0-0.1) K/mm3 Abs Immat Gran (auto) 0.03 (0.00-0.031) K/mm3 Absolute Neuts (auto) 4.8 (1.3-6.7) K/mm3 Absolute Nucleated RBC 0.000 (0.0-0.012) K/mm3 Nucleated RBC % 0.0 (0.0-0.2) % PT 12.5 (11.1-14.7) Seconds INR 0.9 APTT 34.8 (22.3-36.8) Seconds D-Dimer < 0.27 (<0.48) ug/mL Sodium 135 L (137-145) mmol/L Potassium 4.2 (3.4-5.0) mmol/L Chloride 103 (98-107) mmol/L Carbon Dioxide 25 (22-30) mmol/L Anion Gap 7 (4-12) mmol/L BUN 12 (9-20) mg/dL Creatinine 1.05 (0.7-1.3) mg/dL Estim Creat Clear Calc 86 ml/min Estimated GFR > 60 (59 - ) Glucose 101 (65-110) mg/dL Calcium 9.1 (8.4-10.2) mg/dL Total Bilirubin 0.4 (0.2-1.3) mg/dL AST 26 (17-59) U/L ALT 20 (6-50) U/L Alkaline Phosphatase 79 (38-126) U/L Troponin I < 0.012 < 0.012 (0.000-0.034) ng/mL NT-Pro-B Natriuret Pep < 20 (19.9-100) pg/mL Total Protein 7.2 (6.3-8.2) g/dL Albumin 4.3 (3.5-5.1) g/dL Lipase 42 (23-300) U/L Imaging Data Radiologist's impression: Impressions Chest X-Ray 04/11/25 20:58 IMPRESSION: No acute cardiopulmonary process. ECG Data EKG #1: Attestation: I personally reviewed and interpreted this ECG as follows: ECG completion date: 04/11/25 ECG completion time: 20:32 Prior ECG tracings: available for review Interpretation: Normal sinus rhythm at a rate of 73 beats per minute. LA interval 173. QRS 107. QT/QTC 331/357. Good R-wave progression across the precordial leads. Incomplete RBBB given QRS less [id number]; RSR' M-shaped pattern in V1-V3; wide, slurred S wave in lateral leads (I, aVL, and to a lesser extent V5-6). There are unusual morphology of the ST segments throughout many of the leads including questionable elevation in V3 and V2. There does appear to be biphasic nature of the ST segment in the lateral precordial leads V5 and V6. This is also apparent in inferior leads. The only other EKG in the EMR is from 06/19/2024 which at that time also showed an incomplete right bundle-branch block but was otherwise fairly poor quality with significant baseline artifact limiting full interpretation for comparison. EKG #2: Attestation: I personally reviewed and interpreted this ECG as follows: ECG completion date: 04/11/25 ECG completion time: 23:27 Interpretation: Normal sinus rhythm at a rate of 66 beats per minute. LA interval 182. QRS 101. QT/QTC 358/377. Good R-wave progression across the precordial leads. The ST deviation and T-wave abnormalities remain Discharge Plan Discharge Clinical Impression: Chest fullness, Atypical chest pain Patient Disposition: Home Condition: Stable Instructions: Antibiotic Form, Chest Pain (ED), GERD (Gastroesophageal Reflux Disease) (ED) Additional Instructions: Your workup which included x-ray and two normal cardiac enzymes (troponin) did not reveal a cause of your symptoms. I suspect this is gastrointestinal in nature given the presentation. You are otherwise LOW but not NO risk so recommend you follow up with a cardiac work up in the outpatient setting. This can be coordinated with your primary care physician (if you do not have one, the name of a doctor is listed below); alternatively, though cardiology (also listed below). Continue taking all of your medications as prescribed. Try not going to bed immediately after eating you can also try the prescribed medication which suppresses the acid in your stomach. Return to the emergency department with any new or worsening symptoms. Patient Language: Bhutanese Prescriptions: New omeprazole 20 mg tablet,delayed release (DR/EC) 20 mg PO DAILY Qty: 14 0RF Follow-up/Referrals: Kam Hurley MD [Physician] - (family practice/primary care) PHYSICIAN,PAPER TUBE CUTTER [Non-Staff] - Bishop Pimentel MD [Physician] - (cardiology) Stand Alone Forms: Work/School Release IP Time of Disposition: 00:07
[2025-04-11 20:56] LABS: Hematocrit 43.0 % (42.0-52.0); Hemoglobin 14.1 g/dL (14.0-18.0); Immature Granulocyte Percent A 0.4 % (0-0.5); Lymphocytes Absolute Auto 1.30 K/mm3 (0.9-3.2); Mean Corpuscular HGB Conc 32.8 g/dl (32-36); Mean Corpuscular Hemoglobin 30.0 pg (26-34); Mean Corpuscular Volume 91.5 fl (80-100); Nucleated Red Blood Cells Absolute Auto 0.000 K/mm3 (0.0-0.012); Nucleated Red Blood Cells Perc 0.0 % (0.0-0.2); Platelet Count Result 210 k/mm3 (150-375); Red Blood Count 4.70 M/mm3 (4.6-6.20); White Blood Count 6.9 K/mm3 (4.5-10.0)
--- OUTSIDE RECORDS SUMMARY | 2025-04-11 20:57 | XMS_ITS | Clinical Summary ---
Author Organization [facility] / [facility] Address [address] [place] [address] Care Team Providers Care Professor Of Biological Sciences Name Role Phone Nicole Peterson Primary Care Provider [phone] Allergies No known active allergies Medications amLODIPine [...] penile pain is concerning, he can use exto-hye-hdcmhmf anti-inflammatory NSAID such as ibuprofen. Otherwise, we [...] of hepatitis B vaccine. He was given [facility] VIS to review. Assessment & [...] home. Upcoming appointment this at 3pm with Ballistics Expert at [facility]. 12/29/2024: He reports [...] office. Assessment & Plan (11/03/2024 11:47 AM WHOLESALE ACCOUNT EXECUTIVE): Blood pressure continues to remain mildly elevated [...] limits. Assessment & Plan (10/06/2024 11:17 AM WHOLESALE ACCOUNT EXECUTIVE): Referral placed to optometry. Blood pressure is elevated in office today. Increase amlodipine to 10 mg daily. Patient counseled at length on dietary changes. Counseled to purchase arm blood pressure cuff and start monitoring blood pressure at home and take measurements and bring in measurements and cuff at next appointment. Assessment & Plan (08/11/2024 12:37 PM WHOLESALE ACCOUNT EXECUTIVE): Blood pressure has been elevated at 2 [...] notify the office. He is instructed to continuous pickling line pickler helper arm blood pressure cuff to take blood [...] comorbidities. Assessment & Plan (11/03/2024 11:48 AM WHOLESALE ACCOUNT EXECUTIVE): Discussed with patient that in the setting of his mixed hyperlipidemia and high blood pressure and family history, I would recommend he have CT coronary artery calcium score completed. He is counseled that this is an odd-ki-cklnxy cost of $100. He is agreeable. Order has been placed. Assessment & Plan (10/06/2024 11:19 AM WHOLESALE ACCOUNT EXECUTIVE): Patient counseled at length on dietary changes [...] MG/DL Assessment & Plan (08/11/2024 12:23 PM WHOLESALE ACCOUNT EXECUTIVE): Patient is counseled that at this time, [...] MG/DL Assessment & Plan (07/30/2024 8:22 AM WHOLESALE ACCOUNT EXECUTIVE): Component Ref Range & Units 07/28/24 1210 [...] 07/28/2024 Assessment & Plan (07/28/2024 3:19 PM WHOLESALE ACCOUNT EXECUTIVE): Patient counseled regarding HPV vaccine especially as [...] left. Assessment & Plan (10/06/2024 11:18 AM WHOLESALE ACCOUNT EXECUTIVE): He is to finish once weekly vitamin D supplementation. Will recheck vitamin D levels prior to next appointment. Assessment & Plan (08/11/2024 12:25 PM WHOLESALE ACCOUNT EXECUTIVE): He is to continue once weekly vitamin D3. Will monitor as appropriate. Assessment & Plan (07/30/2024 8:21 AM WHOLESALE ACCOUNT EXECUTIVE): Component Ref Range & Units 07/28/24 1210 VITAMIN D 25 HYDROXY TOTAL S/P/B 30 - 100 NG/ML 16.8 Low Sending high-dose vitamin D 3 to take once weekly with food for 12 weeks. Elevated alkaline phosphatase level 07/30/2024 11/02/2024 Overview (08/11/2024): ALKALINE PHOSPHATASE S/P/B 45 - 115 U/L 120 High Assessment & Plan (08/11/2024 12:27 PM WHOLESALE ACCOUNT EXECUTIVE): Will repeat in 3 months when we reevaluate kidney function Decreased glomerular filtration rate (GFR) 07/30/2024 11/03/2024 Overview (11/03/2024): Labs 07/28/2024 GFR ESTIMATE >90 ML/MIN/1.73 M2 70 Low CREATININE S/P/B 0.70 - 1.30 MG/DL 1.30 Labs 10/28/2024: CREATININE S/P/B 0.70 - 1.30 MG/DL 1.03 GFR ESTIMATE >90 ML/MIN/1.73 M2 >90 Assessment & Plan (10/06/2024 11:19 AM WHOLESALE ACCOUNT EXECUTIVE): Rechecking renal function prior to next appointment Assessment & Plan (08/11/2024 12:29 PM WHOLESALE ACCOUNT EXECUTIVE): Serum creatinine Adalat upper limit of normal. [...] limits. Assessment & Plan (08/11/2024 12:25 PM WHOLESALE ACCOUNT EXECUTIVE): Patient is to continue to monitor and we can reevaluate if necessary. Assessment & Plan (07/30/2024 8:26 AM WHOLESALE ACCOUNT EXECUTIVE): Lesion is not consistent with a specific [...] before Assessment & Plan (07/28/2024 3:21 PM WHOLESALE ACCOUNT EXECUTIVE): Patient counseled that blood pressure is elevated. [...] Description 03/16/2025 7:40 AM CDT Office Visit [facility] [address] [place] [address] Nicole Peterson, Urinary Problem (Pt states he has discomfort with urination for the past few days. /) 03/16/2025 Hospital Encounter [facility] [address] [place] [address] Nicole Peterson, Discharge Disposition: Home or Self Care (Routine Discharge) 03/16/2025 - 03/16/2025 11:59 PM CDT Hospital Encounter [facility] [address] [facility] [place] [place] [address] Nicole Peterson, Discharge Disposition: Home or Self Care (Routine Discharge) 03/16/2025 Results Follow-Up [facility] [address] [place] [address] Nicole Peterson, URINALYSIS AUTO DIP, CHLAM/GC/TRICHOMONA S PROFILE, URINE BACTERIA CULTURE 03/16/2025 Travel 03/11/2025 Telephone [facility] [address] [place] [address] Nicole Peterson DO Called To [...] Sex Assigned at Male 10/06/2024 10:22 AM WHOLESALE ACCOUNT EXECUTIVE Legal Sex Male 8:04 PM CDT Gender Identity Male 10/06/2024 10:22 AM WHOLESALE ACCOUNT EXECUTIVE Sexual Orientation Not on file Last Filed [...] Hepatitis C Completed 09/23/2024, 07/28/2024 PHQ-2 (Physician [place]) Completed 10/06/2024 Meningococcal B Vaccine Aged Out [...] HEPATITIS C ANTIBODY Routine 07/28/2024 12:10 PM WHOLESALE ACCOUNT EXECUTIVE Encounter for hepatitis C screening test for low risk patient from Last 3 Months or Most Recently Relevant to Health Maintenance Results * CHLAM/GC/TRICHOMONAS PROFILE (03/16/2025 10:43 AM CDT) SPEC DESCRIPTION URINE 03/16/20 10:44 AM CDT [facility] CHLAMYDIA RNA TMA NEGATIVE NEGATIVE 025 2:59 PM CDT [facility] Comment:PERFORMED BY NUCLEIC ACID AMPLIFICATION N.GONORRHOEAE RNA TMA NEGATIVE NEGATIVE 03/17/2025 2:59 PM CDT [facility] Comment:PERFORMED BY NUCLEIC ACID AMPLIFICATION TRICHOMONAS NEGATIVE NEGATIVE 03/17/2025 2:59 PM CDT [facility] Comment:PERFORMED BY NUCLEIC ACID AMPLIFICATION URINE SPECIMEN / Unknown 03/16/2025 10:43 AM CDT Nicole Peterson DO MICROBIOLOGY - GENERAL ORDERA BLES Final Result Performing Organization Address City/[facility]/ZIP Co de Phone Number [facility] [address] [place] [address], [place] [phone] * URINE BACTERIA CULTURE (03/16/2025 10:43 AM CDT) SPEC DESCRIPTION URINE VOIDED 03/16/2025 10:44 AM CDT [facility] SPECIAL REQUESTS NO SPECIAL REQUEST 03/16/2025 10:44 AM CDT [facility] CULTURE RESULT NO GROWTH (< OR = 1,000 CFU/ML) 03/18/2025 11:41 AM CDT [facility] URINE SPECIMEN FROM URETHRA / Unknown 03/16/2025 10:43 AM CDT 03/17/2025 7:09 AM CDT us Nicole Peterson DO MICROBIOLOGY - GENERAL ORDERA BLES Final Result [facility] [address] [place] [address], [place] [phone] [id number] * URINALYSIS AUTO DIP (03/16/2025) COLOR (U) YELLOW YELLOW [address], [place] TRANSPARENCY CLEAR CLEAR [address], [place] GLUCOSE (U) NEGATIVE NEGATIVE MG/DL MG[address], [place] BILIRUBIN (U) NEGATIVE NEGATIVE MG-[address], [place] KETONES MG/DL (U) NEGATIVE NEGATIVE MG/DL MG[address], [place] SPECIFIC GRAVITY (U) 1.020 1.001 - 1.035 [address], [place] BLOOD (U) NEGATIVE NEGATIVE MG[address], [place] U PH 6.5 5.0 - 9.0 MG[address], [place] PROTEIN (U) NEGATIVE NEGATIVE mg/dL MG-[address], [place] UROBILINOGEN 1.0 0.2 - 1.0 EU/dL = mg/dL MG-[address], [place] NITRITES NEGATIVE NEGATIVE MG/DL MG-[address], [place] LEUKOCYTES (U) NEGATIVE NEGATIVE MG-[address], [place] URINE SPECIMEN FROM URETHRA / Unknown 03/16/2025 Nicole Peterson DO URINE ORDERABLES Final Result [address], [facility] [address] [place] [address], [place] [phone] * HEPATITIS C ANTIBODY (07/28/2024 12:10 PM WHOLESALE ACCOUNT EXECUTIVE) HEPATITIS C AB NON-REACTI VE NON-REACT KRISTY 07/28/2024 9:54 PM WHOLESALE ACCOUNT EXECUTIVE [facility] Comment: ANTIBODIES TO HCV NOT DETECTED. DOES NOT EXCLUDE THE POSSIBILITY OF EXPOSURE TO HCV. 07/28/2024 12:1 0 PM WHOLESALE ACCOUNT EXECUTIVE Nicole Peterson DO LABORATORY Final Result [facility] [address] [place] [address], [place] [phone] [id number] from Last 3 Months or Most Recently Relevant to Health Maintenance Insurance [employer] Care Teams Professor Of Biological Sciences Relationship Specialty Start Date End Date Nicole Peterson DO [address] [facility] [address] [place] [address] PCP - General FAMILY PRACTICE 07/23/24 05/04/25
--- OUTSIDE RECORDS SUMMARY | 2025-04-11 20:57 | XMS_ITS | Referral Summary ---
Author Organization [facility] Address [address] [place] [address] Care Team Providers Care Art History Instructor Name Role Phone Cait Mart NP Primary [...] on file Legal Sex Male 6:19 PM MUSIC ENGINEER Gender Identity Not on file Sexual Orientation Not on file Last Filed Vital Signs Vital Sign Reading Time Taken Comments Blood Pressure 134/97 07/21/2023 4:30 PM MUSIC ENGINEER Pulse 70 07/21/2023 4:30 PM MUSIC ENGINEER Temperature 36.9 C (98.4 F) 07/21/2023 1:37 PM MUSIC ENGINEER Respiratory Rate 13 07/21/2023 4:30 PM MUSIC ENGINEER Oxygen Saturation 93% 07/21/2023 4:30 PM MUSIC ENGINEER Inhaled Oxygen Concentration - - Weight 86.2 kg (190 lb) 09/12/2023 2:45 PM MUSIC ENGINEER Height 170.2 cm (5' 7) 09/12/2023 2:45 PM MUSIC ENGINEER Body Mass Index 29.76 09/12/2023 2:45 PM MUSIC ENGINEER Plan of Treatment Not on file Procedures Procedure Name Priority Date/Time Associated Diagnosis Comments HEPATITIS C ANTIBODY Routine 09/23/2024 1:08 PM MUSIC ENGINEER Encounter for screening for infections with predominantly sexual mode of transmission from Last 3 Months or Most Recently Relevant to Health Maintenance Results * Hepatitis C antibody Blood (09/23/2024 1:08 PM MUSIC ENGINEER) Hep C Ab Nonreactive Nonreactive Comment:Antibodies to HCV no t detected. Does NOT exclude the possibility of recent exposure to HCV. Current interpretive data was last revised on 22 Blood 09/23/2024 1:08 PM MUSIC ENGINEER 09/23/2024 2:17 PM MUSIC ENGINEER us Tristan Vizcaino MD LAB MICROBIOLOGY - GENERAL ORDERABLES Final Result [facility] Department [place] [address] from Last 3 Months or Most Recently Relevant to Health Maintenance Insurance [facility] [id number] [address] [place] Care Teams Art History Instructor Relationship Specialty Start Date End Date Cait Mart NP PCP - General Family Medicine 07/23/23
--- OUTSIDE RECORDS SUMMARY | 2025-04-11 20:57 | XMS_ITS | Clinical Summary ---
Author Organization [facility] Care Team Providers Care Biodiesel Product Manager Name Role Phone Unavailable Primary Care Provider Unavailabl e Social History Tobacco Use Types Packs/Day Years Used Date Smoking Tobacco: Never Assessed Sex and Gender Information Value Date Recorded Sex Assigned at Not on file Legal Sex Male 10:28 AM BUSINESS PERFORMANCE ADVISOR Gender Identity Not on file Sexual Orientation [...]
--- OUTSIDE RECORDS SUMMARY | 2025-04-11 20:57 | XMS_ITS | Clinical Summary ---
Author Organization [facility] Address [address] [place] [address] Care Team Providers Care Seeing Eye Dog Trainer Name Role Phone Cait Mart NP Primary [...] on file Legal Sex Male 6:19 PM LOG CHAIN FEEDER Gender Identity Not on file Sexual Orientation Not on file Obstetrics History Last Filed Vital Signs Vital Sign Reading Time Taken Comments Blood Pressure 134/97 07/21/2023 4:30 PM LOG CHAIN FEEDER Pulse 70 07/21/2023 4:30 PM LOG CHAIN FEEDER Temperature 36.9 C (98.4 F) 07/21/2023 1:37 PM LOG CHAIN FEEDER Respiratory Rate 13 07/21/2023 4:30 PM LOG CHAIN FEEDER Oxygen Saturation 93% 07/21/2023 4:30 PM LOG CHAIN FEEDER Inhaled Oxygen Concentration - - Weight 86.2 kg (190 lb) 09/12/2023 2:45 PM LOG CHAIN FEEDER Height 170.2 cm (5' 7) 09/12/2023 2:45 PM LOG CHAIN FEEDER Body Mass Index 29.76 09/12/2023 2:45 PM LOG CHAIN FEEDER Plan of Treatment Health Maintenance Due Date [...] HEPATITIS C ANTIBODY Routine 09/23/2024 1:08 PM LOG CHAIN FEEDER Encounter for screening for infections with predominantly sexual mode of transmission from Last 3 Months or Most Recently Relevant to Health Maintenance Results * Hepatitis C antibody Blood (09/23/2024 1:08 PM LOG CHAIN FEEDER) Hep C Ab Nonreactive Nonreactive Comment:Antibodies to HCV no t detected. Does NOT exclude the possibility of recent exposure to HCV. Current interpretive data was last revised on 22 Blood 09/23/2024 1:08 PM LOG CHAIN FEEDER 09/23/2024 2:17 PM LOG CHAIN FEEDER Tristan Vizcaino MD LAB MICROBIOLOGY - GENERAL ORDERABLES Final Result [facility] [place] [address] from Last 3 Months or Most Recently Relevant to Health Maintenance Insurance [facility] [employer] [id number] [address] [employer] Care Teams Seeing Eye Dog Trainer Relationship Specialty Start Date End Date Cait Mart NP PCP - General Family Medicine 07/23/23
[2025-04-11 21:00] VITALS: BP 127/96; PULSE 81; RESP 14; O2SAT 96
[2025-04-11 21:07] LABS: INR 0.9; Prothrombin Time 12.5 Seconds (11.1-14.7)
[2025-04-11 21:08] LABS: Partial Thromboplastin Time 34.8 Seconds (22.3-36.8)
[2025-04-11 21:22] LABS: Alanine Aminotransferase 20 U/L (6-50); Albumin Level 4.3 g/dL (3.5-5.1); Alkaline Phosphatase 79 U/L (38-126); Anion Gap 7 mmol/L (4-12); Aspartate Amino Transferase 26 U/L (17-59); Bilirubin,Total 0.4 mg/dL (0.2-1.3); Blood Urea Nitrogen 12 mg/dL (9-20); Calcium 9.1 mg/dL (8.4-10.2); Carbon Dioxide 25 mmol/L (22-30); Chloride 103 mmol/L (98-107); Estimated CRCL calculation 86 ml/min; Estimated Glomerular Filt Rate > 60; Glucose 101 mg/dL (65-110); Lipase 42 U/L (23-300); Potassium 4.2 mmol/L (3.4-5.0); Sodium 135 mmol/L (137-145); Total Protein 7.2 g/dL (6.3-8.2)
[2025-04-11 21:33] LABS: Troponin I < 0.012 ng/mL (0.000-0.034)
[2025-04-11] MEDS: BELLADONNA ALK/PHENOB ELIX 10 ML, MAG HYDROX/ALUMINUM HYD/SIMETH 30 ML, LIDOCAINE 2% VI... PO (21:37)
[2025-04-11] MEDS: FAMOTIDINE 20 MG/2 ML VIAL IV PUSH (21:38)
[2025-04-11 22:00] VITALS: BP 127/90; PULSE 72; RESP 14; O2SAT 96
[2025-04-11 23:01] VITALS: BP 126/85; PULSE 71; RESP 15; O2SAT 96
[2025-04-11 23:05] LABS: NT Pro B Type Natriuretic Pept < 20 pg/mL (19.9-100)
--- NOTE | 2025-04-11 23:22 | ECG_ITS ---
Test Date: 2025-04-11 23:27:33 Measurements Intervals [place] Rate: 66 P: 40 PA: 182 QRS: 35 QRSD: 101 T: -80 QT: 358 QTc: 377 Interpretive Statements SINUS RHYTHM ST ELEVATION IN DIFFUSE LEADS- PROBABLY EARLY REPOLARIZATION T WAVE ABNORMALITY IN INF/LAT LEADS- CONSIDER ISCHEMIA BASELINE ARTIFACT- I, II, AVR ABNORMAL ECG Compared to ECG 04/11/2025 20:32:45 NO SIGNIFICANT CHANGE Electronically Signed On 04-12-2025 06:25:39 CDT by Carlos Leon D.O.
[2025-04-12 00:01] VITALS: BP 127/78; PULSE 62; RESP 12; O2SAT 96
[2025-04-12 00:02] LABS: Troponin I < 0.012 ng/mL (0.000-0.034)
[2025-04-12] MEDS: PANTOPRAZOLE 40 MG TABLET PO (00:22)
== END 2025-04-12 00:23 | disposition home or self-care (01) ==
PROVIDERS: Emergency Provider Student in an Organized Health Care Education/Training Program
DX: R07.89 Other chest pain (principal); I10 Essential (primary) hypertension
CPT/HCPCS: 36415; 71046; 80053; 83690; 83880; 84484; 85025; 85380; 85610; 85730; 93005; 96374; 99284; A9270